=== PATIENT | male | born 1980 | race Caucasian/White ===

== ENCOUNTER 2024-10-03 18:42 | Emergency (ER) | payer SELFPAY ==
--- NOTE | 2024-10-03 18:46 | HMH.EDGENADL ---
Discharge Plan Disposition Patient Disposition: Home, Self-Care Condition: Good Referrals Follow up/Referrals: Provider,Referral, MD [Primary Care Provider, Medical] - See instructions Activity Restrictions/Add. Instructions Additional Instructions/Restrictions: Take Tylenol and ibuprofen as needed you can place ice or cool compresses on the finger as well. You may develop additional swelling over the next day or 2, if you develop any significant numbness in the finger or if it progresses up the hand please return to the emergency department or if it becomes pale in color. Otherwise you are okay to return to work when you would like. Clinical Impressions Clinical Impression: Finger pain Stand Alone Forms Stand Alone Forms: Work/School Release Print Language Print Language: Turkish Discharge ED Provider: Christina David Adult HPI General Chief complaint: Extremity Injury, Upper Stated complaint: AO 8- hurt index finger at right hand Time Seen by Provider: 10/03/24 18:46 History of Present Illness HPI narrative: Patient is an otherwise healthy 44-year-old male who presented to the emergency department after a piece of equipment at work fell on his hand and was stuck there for about 10 minutes. Patient reports pain in his index finger. Patient has no other medical problems. Patient denies any numbness or weakness but does report pain. Patient is unsure when his last tetanus shot was. Related Data Allergies Allergy/AdvReac Type Severity Reaction Status Date / Time No Known Allergies Allergy Verified 10/03/24 18:58 [facility] Disclaimer: The information contained in this section may have been updated after the patient was seen, as this information can be updated by other users. Social History Smoking Status: Current every day smoker alcohol intake: never current occupational status: employed Travel in the last 8 weeks?: None ROS Obtained: Yes All systems reviewed & no additional complaints except as documented and Yes Systems reviewed as appropriate & no additional complaints except as documented Physical Exam General General appearance: alert and in no apparent distress Head Head exam: atraumatic, normocephalic and normal inspection Eye Eye exam: Present normal appearance, PERRL and EOMI; Absent scleral icterus ENT ENT exam: Present normal exam and normal external ear exam Neck Neck exam: Present normal inspection and full ROM Chest Chest inspection: Present normal inspection and symmetric chest wall rise Respiratory Respiratory exam: Present normal lung sounds bilaterally; Absent respiratory distress or wheezes Cardiovascular Cardiovascular exam: Present regular rate, normal rhythm and normal heart sounds Abdominal Exam Abdominal exam: Present soft and distention; Absent tenderness, guarding or rebound Extremities Exam Extremities exam: Present normal inspection, full ROM and other (L hand with tenderness of the index finger, no lacerations, mild swelling, NVI, 2 + radial pulse) Back Exam Back exam: Present normal inspection and full ROM Neurological Exam Neurological exam: Present alert and oriented X3 Psychiatric Psychiatric exam: Present normal affect and normal mood Skin Skin exam: Present warm and dry Medical Decision Making Medical Records Medical records reviewed: Yes I reviewed the patient's medical records. Screening: Per USPSTF and CDC recommendations, given the prevalence of disease in our region, it is our hospital?s policy to screen for HIV and viral Hepatitis for all patients aged 18 and over and those with ongoing risk factors. Earle Inquiry Pt receiving controlled substance: No Vital Signs: 10/03/24 18:50 10/03/24 18:51 10/03/24 19:00 Temperature 98.4 F Temperature Source Oral Pulse Rate 67 65 Pulse Rate [Left] 73 Respiratory Rate 19 17 Blood Pressure Blood Pressure [Left Arm] 149/109 H Blood Pressure Mean Blood Pressure Mean [Left Arm] 122 Blood Pressure Source Blood Pressure Source [Left Arm] Automatic Cuff Blood Pressure Position Blood Pressure Position [Left Arm] Sitting 02 Sat by Pulse Oximetry 98 98 98 Oxygen Delivery Method Room Air Room Air 10/03/24 19:00 10/03/24 20:37 Temperature 98.4 F Temperature Source Pulse Rate 70 Pulse Rate [Left] Respiratory Rate 16 Blood Pressure 146/102 H 154/89 H Blood Pressure [Left Arm] Blood Pressure Mean 115 Blood Pressure Mean [Left Arm] Blood Pressure Source Automatic Cuff Blood Pressure Source [Left Arm] Blood Pressure Position Sitting Blood Pressure Position [Left Arm] 02 Sat by Pulse Oximetry Oxygen Delivery Method Room Air Lab Data Lab results reviewed: Yes I reviewed the patient's lab results. Orders (Tests/Meds): ED MEDICATIONS Discontinued Medications Generic Name Dose Route Start Last Admin Trade Name Freq PRN Reason Stop Dose Admin Oxycodone HCl 5 mg 10/03/24 19:13 10/03/24 19:25 Oxycodone 5mg Immediate Release Tablet PO 10/03/24 19:14 5 mg ONCE ONE Administration Tetanus/Reduced Diphtheria/Acell Pertussis 0.5 ml 10/03/24 19:12 10/03/24 19:27 Tet/Diphth/Pert-Adult 0.5ml Syringe IM 10/03/24 19:13 0.5 ml .ONCE ONE Administration ORDERS Category Date Time Status Hand XR right minimum 3 views [XR hand RT min 3V] Stat Exams 10/03/24 19:12 Completed Medical Decision Narrative: Patient is an otherwise healthy 44-year-old male who presented to the emergency department with a left hand injury. On arrival, patient was hemodynamically stable with unremarkable vital signs. Differential includes but not limited to: Fracture, dislocation, sprain, strain, open fracture, crush injury, amongst others. X-rays of the left hand were obtained and patient was given pain medication. Patient has small abrasion but not actually laceration but tetanus was updated. X-rays were reviewed and interpreted by myself and showed no acute fractures. Patient was otherwise neurovascularly intact with an appropriate radial pulse. Low concern for significant crush injury at this time. Patient was advised to treated symptomatically with Tylenol Motrin and follow-up with primary care provider return to the emergency department for any acute or worsening neurologic symptoms. Critical Care Critical Care Time Critical Care Time: No
[2024-10-03 18:50] VITALS: BP 149/109; PULSE 73; RESP 19; TEMP 36.9; O2SAT 98; BMI 29.9
[2024-10-03 18:51] VITALS: PULSE 67; RESP 17; O2SAT 98
[2024-10-03 19:00] VITALS: BP 146/102; PULSE 65; O2SAT 98
--- NOTE | 2024-10-03 19:12 | XR_ITS ---
PROCEDURE INFORMATION: Exam: XR Right Hand Exam date and time: 10/03/2024 7:17 PM Age: 44 years old Clinical indication: Injury or trauma; Other: Crushed with machine; Work related; Crushing; Hand; Right; Additional info: 2nd digit pain after crushed TECHNIQUE: Imaging protocol: Radiologic exam of the right hand. Views: 3 or more views. COMPARISON: No relevant prior studies available. FINDINGS: Bones/joints: Normal. Soft tissues: Normal. IMPRESSION: No acute findings.
[2024-10-03] MEDS: OXYCODONE 5MG IMMEDIATE RELEASE TABLET 5 MG PO (19:25)
[2024-10-03] MEDS: TET/DIPHTH/PERT-ADULT 0.5ML SYRINGE 0.5 ML IM (19:27)
[2024-10-03 20:37] VITALS: BP 154/89; PULSE 70; RESP 16; TEMP 36.9; O2SAT 98
== END 2024-10-03 20:38 | disposition home or self-care (01) ==
PROVIDERS: Emergency Provider Student in an Organized Health Care Education/Training Program
DX: M79.644 Pain in right finger(s) (principal); F17.200 Nicotine dependence, unspecified, uncomplicated
CPT/HCPCS: 73130; 90471; 90715; 99283; 99284